=== PATIENT | male | born 1945 | race Caucasian/White ===

== ENCOUNTER 2018-03-23 15:08 | Inpatient (IN) | payer OTHER ==
[~2018-03-23] VITALS: Ht 180.3 cm; Wt 83.0 kg
== END 2018-04-06 16:32 | disposition home or self-care (01) | DRG 594 ==
LOC: ER 15:08 → MEDJ 03-24 11:41 → SEC-K 03-24 11:41 → MEDJ 03-24 17:40
PROVIDERS: ADMIT Internal Medicine
PROC: 8E0ZXY6 Isolation (ICD-10-PCS; principal; 2018-03-24)
PROC: B44HZZZ Ultrasonography of Bilateral Lower Extremity Arteries (ICD-10-PCS; 2018-03-24)
PROC: B54DZZZ Ultrasonography of Bilateral Lower Extremity Veins (ICD-10-PCS; 2018-03-27)
DX: L97.528 Non-pressure chronic ulcer of other part of left foot with other specified severity (principal); B95.62 Methicillin resistant Staphylococcus aureus infection as the cause of diseases classified elsewhere; B96.4 Proteus (mirabilis) (morganii) as the cause of diseases classified elsewhere; B95.61 Methicillin susceptible Staphylococcus aureus infection as the cause of diseases classified elsewhere; B96.89 Other specified bacterial agents as the cause of diseases classified elsewhere; B95.4 Other streptococcus as the cause of diseases classified elsewhere; B96.5 Pseudomonas (aeruginosa) (mallei) (pseudomallei) as the cause of diseases classified elsewhere

== ENCOUNTER 2019-09-03 16:23 | Inpatient (IN) | payer OTHER ==
[~2019-09-03] VITALS: Ht 180.3 cm; Wt 76.2 kg
[2019-09-05] MEDS ORDERED: DOXYCYCLINE HY100 M2 PO (08:17)
[2019-09-05] MEDS ORDERED: DULOXETINE HCL30 MG PO (08:17)
[2019-09-05] MEDS ORDERED: SILVER SULFADIA50 GM (08:17)
[2019-09-05] MEDS ORDERED: LASIX20 MG PO (08:17)
[2019-09-05] MEDS ORDERED: ZIAC 5-6.25 MG1 EACH PO (08:17)
[2019-09-05] MEDS ORDERED: XYZAL5 MG PO (08:18)
== END 2019-09-11 15:32 | DRG 470 ==
LOC: ER 16:23 → SURH 09-04 20:34 → MEDJ 09-07 01:54 → SURH 09-10 12:11
PROVIDERS: Orthopaedic Surgery; ADMIT Internal Medicine; ATTEND Internal Medicine
PROC: BW2GZZZ Computerized Tomography (CT Scan) of Pelvic Region (ICD-10-PCS; 2019-09-05)
PROC: B54CZZZ Ultrasonography of Left Lower Extremity Veins (ICD-10-PCS; 2019-09-05)
PROC: 0SRS01Z Replacement of Left Hip Joint, Femoral Surface with Metal Synthetic Substitute, Open Approach (ICD-10-PCS; principal; 2019-09-06 16:00)
DX: S72.002A Fracture of unspecified part of neck of left femur, initial encounter for closed fracture (principal); R33.8 Other retention of urine; N99.89 Other postprocedural complications and disorders of genitourinary system; E86.0 Dehydration; I87.2 Venous insufficiency (chronic) (peripheral); I73.9 Peripheral vascular disease, unspecified; L97.529 Non-pressure chronic ulcer of other part of left foot with unspecified severity; L97.519 Non-pressure chronic ulcer of other part of right foot with unspecified severity; L98.419 Non-pressure chronic ulcer of buttock with unspecified severity; B96.4 Proteus (mirabilis) (morganii) as the cause of diseases classified elsewhere

== ENCOUNTER 2019-09-23 13:47 | Emergency (ER) | payer OTHER ==
[~2019-09-23] VITALS: Ht 162.6 cm; Wt 79.4 kg
[~2019-09-23 13:47] MED LIST: DOXYCYCLINE HY100 M2 PO; DULOXETINE HCL30 MG PO; LASIX20 MG PO; SILVER SULFADIA50 GM; XYZAL5 MG PO; ZIAC 5-6.25 MG1 EACH PO
[2019-09-23] MEDS ORDERED: XARELTO10 M1 PO (14:08)
== END 2019-09-23 19:50 | disposition home or self-care (01) ==
LOC: ER 13:47
DX: N39.0 Urinary tract infection, site not specified (principal); R31.0 Gross hematuria

== ENCOUNTER 2019-09-27 08:59 | Outpatient (CLI) | payer OTHER ==
[~2019-09-27 08:59] MED LIST changes: +XARELTO10 M1 PO
== END 2019-09-27 09:02 | disposition home or self-care (01) ==
LOC: RAD 08:59
PROVIDERS: ATTEND Orthopaedic Surgery
DX: Z96.642 Presence of left artificial hip joint (principal)

== ENCOUNTER 2019-09-27 09:55 | Outpatient (CLI) | payer OTHER | END 2019-09-27 10:02 | disposition home or self-care (01) | LOC: LAB 09:55 | PROVIDERS: ATTEND Orthopaedic Surgery | DX: E21.2 Other hyperparathyroidism (principal); E55.9 Vitamin D deficiency, unspecified; M85.88 Other specified disorders of bone density and structure, other site; M81.8 Other osteoporosis without current pathological fracture; E88.89 Other specified metabolic disorders; E56.1 Deficiency of vitamin K ==

== ENCOUNTER 2019-09-27 10:56 | Outpatient (CLI) | payer OTHER | END 2019-09-27 11:01 | disposition home or self-care (01) | LOC: NUCLEAR 10:56 | PROVIDERS: ATTEND Orthopaedic Surgery | DX: M81.0 Age-related osteoporosis without current pathological fracture (principal) ==

== ENCOUNTER 2021-11-10 22:22 | Inpatient (IN) | payer OTHER ==
--- NOTE | 2021-11-10 22:31 | NUR ---
SE RECIBE MASCULINO ALERTA Y ORIENTADO X 3 ESFERAS EL CUAL INDICA QUE PRESENTA DOLOR ABDOMINAL Y VOMITOS DESDE IGNACIO.
--- NOTE | 2021-11-10 22:44 | NUR ---
EVALUA PTE. SE EDUCA SOBRE [place] MEDICO EL CUAL REFIERE COMPRENDER. SE COLECTAN MUESTRAS DE LABORATORIO BAJO MEDIDAS ASEPTICAS. SE ADMINISTRA IV'S LAUREN ORDEN MEDICA.
--- NOTE | 2021-11-10 23:23 | NUR ---
PACIENTE ALERTA Y ORIENTADO X3. RECIBIENDO 0.9% NSS DE 1,000ML BAJANDO A 100ML/HR. PENDIENTE RESULTADOS DE LABORATORIO Y PENDIENTE ENTREGA DE MUESTRA DE U/A Y FECAL. PACIENTE ACOMPANADO POR FAMILIAR. SE MANTIENE BAJO OBSERVACION POR CAMBIOS SIGNIFICATIVOS.
--- NOTE | 2021-11-11 | NUR ---
SE SOLICITA MEDICAMENTOS A RN JENNIFER SENIOR SAS DEVELOPER. [facility]
--- NOTE | 2021-11-11 00:41 | NUR ---
PACIENTE SE LE REALIZA ADMINISTRACION DE KCL POR MAQUINA DE IV PUMD, SE ORIENTA A PACIENTE SOBRE USO Y EFECTOS DEL MEDICMENTOS A SER ADMINISTRADO. AL MOMENTO PACIENTE NO REFIER QUEJA ALGINA AL MOMENTO.
--- NOTE | 2021-11-11 00:45 | NUR ---
MEDICAMENTO PROGRAMADO A BAJAR EN 4 HRS.
--- NOTE | 2021-11-11 01:50 | NUR ---
SE REALIZA ADMINISTRACION DE MEDICAMENTOS POR ORDEN MEDICA, SE OREJTA A PACIENTE SOBRE USO Y EFECTOS.
--- NOTE | 2021-11-11 07:24 | NUR ---
SE RECIBI PTE MASCULINO DE 75 ANOS DE EDAD.PTE ALERTA,ESTABLE Y ORIENTADO.SE EDUCA SOBRE EL TRATAMIENTO QUE RECIBIRA EN EL HOSPITAL Y THO REFIERE ENTENDER.PTE SE MANTIENE EN LA ESPERA DEL CT
[2021-11-12] MEDS ORDERED: CLOTRIMAZOLE-BE15 G1 (08:03)
== END 2022-03-13 10:14 | disposition home or self-care (01) | DRG 329 ==
LOC: ER 22:22 → SEC-K 11-11 11:34 → SURH 11-11 11:34 → MEDI 11-11 11:34 → O/R 11-17 11:33 → ICU 11-17 18:59 → SURH 11-23 20:36 → SURG 12-29 13:43 → SURH 02-17 11:56
PROVIDERS: Surgery; ADMIT Internal Medicine; ATTEND Internal Medicine
PROC: 07BC0ZZ Excision of Pelvis Lymphatic, Open Approach (ICD-10-PCS; 2021-11-16)
PROC: 0DJD4ZZ Inspection of Lower Intestinal Tract, Percutaneous Endoscopic Approach (ICD-10-PCS; 2021-11-16)
PROC: 0BH17EZ Insertion of Endotracheal Airway into Trachea, Via Natural or Artificial Opening (ICD-10-PCS; 2021-11-16)
PROC: 5A1955Z Respiratory Ventilation, Greater than 96 Consecutive Hours (ICD-10-PCS; 2021-11-16)
PROC: 0DTF0ZZ Resection of Right Large Intestine, Open Approach (ICD-10-PCS; principal; 2021-11-16 14:45)
PROC: 02HV33Z Insertion of Infusion Device into Superior Vena Cava, Percutaneous Approach (ICD-10-PCS; 2021-11-18)
PROC: 4A12X4Z Monitoring of Cardiac Electrical Activity, External Approach (ICD-10-PCS; 2021-11-24)
PROC: 30243N1 Transfusion of Nonautologous Red Blood Cells into Central Vein, Percutaneous Approach (ICD-10-PCS; 2021-11-29)
DX: K56.0 Paralytic ileus (principal); J15.212 Pneumonia due to Methicillin resistant Staphylococcus aureus; J95.821 Acute postprocedural respiratory failure; C18.0 Malignant neoplasm of cecum; F11.20 Opioid dependence, uncomplicated; J98.11 Atelectasis; J90 Pleural effusion, not elsewhere classified; J95.89 Other postprocedural complications and disorders of respiratory system, not elsewhere classified; E87.0 Hyperosmolality and hypernatremia; J81.1 Chronic pulmonary edema; N39.0 Urinary tract infection, site not specified; B37.89 Other sites of candidiasis; D64.9 Anemia, unspecified; E87.6 Hypokalemia; E87.8 Other disorders of electrolyte and fluid balance, not elsewhere classified; R41.0 Disorientation, unspecified; R53.81 Other malaise; I80.8 Phlebitis and thrombophlebitis of other sites; R59.9 Enlarged lymph nodes, unspecified; I87.2 Venous insufficiency (chronic) (peripheral); K80.20 Calculus of gallbladder without cholecystitis without obstruction; I10 Essential (primary) hypertension; I73.9 Peripheral vascular disease, unspecified; E03.9 Hypothyroidism, unspecified; Z63.8 Other specified problems related to primary support group; Z59.00 Homelessness unspecified; Z53.31 Laparoscopic surgical procedure converted to open procedure; F43.20 Adjustment disorder, unspecified